=== PATIENT | female | born 1995 ===

== ENCOUNTER 2022-04-28 15:33 | Outpatient (CLI) | payer OTHER | END 2022-04-28 16:36 | disposition home or self-care (01) | LOC: PRENATAL 15:33 | PROVIDERS: ATTEND Obstetrics & Gynecology Maternal & Fetal Medicine | DX: Z31.69 Encounter for other general counseling and advice on procreation (principal) ==

== ENCOUNTER 2022-05-27 15:37 | Outpatient (CLI) | payer OTHER | END 2022-05-27 17:33 | disposition home or self-care (01) | LOC: PRENATAL 15:37 | PROVIDERS: ATTEND Obstetrics & Gynecology Maternal & Fetal Medicine | DX: O35.0XX0 Maternal care for (suspected) central nervous system malformation in fetus, not applicable or unspecified (principal); O35.3XX0 Maternal care for (suspected) damage to fetus from viral disease in mother, not applicable or unspecified; O34.219 Maternal care for unspecified type scar from previous cesarean delivery; O99.210 Obesity complicating pregnancy, unspecified trimester; Z3A.20 20 weeks gestation of pregnancy ==

== ENCOUNTER 2022-07-22 14:33 | Outpatient (CLI) | payer OTHER | END 2022-07-22 15:57 | disposition home or self-care (01) | LOC: PRENATAL 14:33 | PROVIDERS: ATTEND Obstetrics & Gynecology Maternal & Fetal Medicine | DX: O26.849 Uterine size-date discrepancy, unspecified trimester (principal); O34.219 Maternal care for unspecified type scar from previous cesarean delivery; O99.210 Obesity complicating pregnancy, unspecified trimester; Z3A.29 29 weeks gestation of pregnancy ==